=== PATIENT | male | born 1935 | race Caucasian/White ===

== ENCOUNTER 2018-04-07 12:17 | Emergency (ER) | payer OTHER ==
[~2018-04-07 12:17] MED LIST: ASPIR 8181 MG PO; CIPRO250 MG PO; FLOMAX(MONOGRA0.4 MG PO; HYDRODIURIL 2525 MG PO; LEVOTHROID SOD0.1 MG PO; LOSARTAN POTAS100 MG PO; PERCOCET 325 MG1 TA2 PO
--- NOTE | 2018-04-07 12:37 | ED EYE COMPLAINT ---
History of Present Illness General Chief Complaint: Eye Problems Stated Complaint: EYES BURNING DIZZINESS Source: patient, family, old records Exam Limitations: no limitations Vital Signs & Intake/Output Vital Signs & Intake/Output Vital Signs Date Time Temp Pulse Resp B/P B/P Pulse O2 O2 Flow FiO2 Mean Ox Delivery Rate 04/07 1224 98.3 69 18 180/74 98 Room Air Allergies Coded Allergies: NO KNOWN ALLERGIES (11/01/15) Reconcile Medications Aspirin (Ecotrin) 81 MG ECT 1 TAB PO DAILY HEART HEALTH (Reported) Ciprofloxacin (Ciloxan) 0.3 % DROPS 1 GTT OPH TID CHEMICAL CONJUNCTIVITIS Ciprofloxacin Hydrochloride (Cipro) 250 MG TAB 1 TAB PO BID INFN Hydrochlorothiazide (Hydrodiuril 25 MG Tab) 25 MG TAB 1 TAB PO DAILY BP ( Reported) Levothyroxine Sodium (Levothroid Sodium) 0.1 MG TAB 1 TAB PO DAILY THYROID ( Reported) Losartan Potassium 100 MG TAB 1 TAB PO DAILY BP (Reported) OXYCODONE HCL/ACETAMINOPHEN (Percocet 5-325 MG Tablet) 325 MG/5 MG TAB 1 TAB PO Q4-6 PRN PRN PAIN Tamsulosin Hydrochloride (Flomax) 0.4 MG CAP 1 TAB PO DAILY KIDNEY STONE Triage Note: 82 YO MALE TO TRIAGE FOR EVAL OF BURNING TO EYES. STATES WAS IN HIS [place]ARDEN PICK[place] BE[place] AND WHEN HE CAME INSIDE HIS EYES STARTED TO BURN, DENIES USING ANY CHEMICLES IN GARDEN. STATES VISION IS FINE AT THIS TIME. PT HOLDING COLD CLOTH ON EYES FOR COMFORT. Triage Nurses Notes Reviewed? yes HPI: Patient was gardening today and shortly after going inside his eyes began to burn. Patient put "clot on his eyes but the burning continued. Patient denies any blurry vision. Patient states he feels dizzy at times. He describes it as room spinning dizziness. There is no lightheadedness. There is no nausea or vomiting. The burning is constant. There is no radiation. There are no aggravating or mitigating factors. He rates the pain at 10 out of 10. Past History Travel History Traveled to [place] past 21 day No Medical History Any Pertinent Medical History? see below for history Cardiovascular: hypertension Renal: nephrolithiasis Endocrine: THYROID DISORDER Surgical History Surgical History: hernia repair Psychosocial History What is your primary language Kazakh Tobacco Use: Never used ETOH Use: denies use Illicit Drug Use: denies illicit drug use Family History Hx Contributory? No Review of Systems Review of Systems Constitutional: Reports: no symptoms. Eyes: Reports: see HPI, inflammation. Throat: Reports: no symptoms. Respiratory: Reports: no symptoms. Cardiovascular: Reports: no symptoms. GI: Reports: no symptoms. Neurological/Psychological: Reports: see HPI. Immunologic/Allergic: Reports: no symptoms. Physical Exam General Appearance: well developed/nourished, anxious, moderate distress General Inspection: normal inspection Eyelid: normal inspection, everted for exam Conjunctiva/Sclera: injected Cornea: normal inspection, examined w/fluorescein, fluorescein dye uptake EOM: intact Pupil: normal accommodation, normal pupil, PERRL General Inspection: normal inspection Eyelid: normal inspection, everted for exam Conjunctiva/Sclera: injected Cornea: normal inspection, examined w/fluorescein, fluorescein dye uptake EOM: intact Pupil: normal accommodation, normal pupil, PERRL Physical Exam Mouth/Throat: normal mouth inspection, pharynx normal Neck: normal inspection, supple, full range of motion Cardiovascular/Respiratory: normal breath sounds, normal peripheral pulses, regular rate/rhythm Neurologic/Psych: no motor/sensory deficits, awake, alert, oriented x 3, normal gait Progress Differential Diagnosis: corneal foreign body, conjunctivitis Plan of Care: IRRIGATION Departure Departure Disposition: HOME OR SELF CARE Condition: Stable Clinical Impression Primary Impression: Chemical conjunctivitis of both eyes Referrals: Ernie VERGARA,Devonte Montoya (PCP/Family) Additional Instructions: Follow-up with your eye doctor tomorrow. Use eye drops as directed. Usually will washcloth across her eyes for pain and discomfort. Return if symptoms worsen or for any concerns. Departure Forms: Customer Survey General Discharge Information Prescriptions: Current Visit Scripts Ciprofloxacin (Ciloxan) 1 GTT OPH TID #5 ML
[2018-04-07 14:12] VITALS: BP 156/78
[2018-04-07] MEDS ORDERED: CILOXAN5 ML OPH (14:46)
== END 2018-04-07 14:53 ==
LOC: ERH 12:17
DX: T65.91XA Toxic effect of unspecified substance, accidental (unintentional), initial encounter (principal); H10.213 Acute toxic conjunctivitis, bilateral; Z79.82 Long term (current) use of aspirin; I10 Essential (primary) hypertension